=== PATIENT | male | born 1950 | race Caucasian/White ===

== ENCOUNTER 2022-07-08 13:55 | Emergency (ER) | payer MEDICARE, OTHER, SELFPAY ==
--- NOTE | ~2022-07-08 | XR_ITS ---
EXAMINATION: XR FOOT, LEFT CLINICAL INFORMATION: Pain of the second through fourth digits/midfoot. COMPARISON: None TECHNIQUE: AP, lateral, and oblique views of the left foot. FINDINGS: Obliquely oriented fracture of the fifth metatarsal. This involves the shaft without extension to the articular surfaces. Slight medial displacement of the distal fragment by 0.2 cm. Overlying soft tissue swelling. Scattered vascular calcification. XR/XR foot LT min 3V IMPRESSION: Fifth metatarsal shaft fracture.
[2022-07-08 15:00] VITALS: BP 150/75; PULSE 57; RESP 16; TEMP 36.6; O2SAT 98; BMI 23.0
--- NOTE | 2022-07-08 15:00 | ED_ITS ---
HPI - Extremity Injury (Lower) General Chief Complaint: Extremity Injury, Lower <Rossy Siddiqi CNP - Last Filed: 07/08/22 15:02> Stated Complaint: l foot inj <Rossy Siddiqi CNP - Last Filed: 07/08/22 15:02> Time Seen by Provider: 07/08/22 15:26 <Rossy Siddiqi CNP - Last Filed: 07/08/22 15:02> Source: patient and RN notes reviewed <KARINA Li - Last Filed: 07/08/22 16:55> Mode of arrival: ambulatory <KARINA Li Last Filed: 07/08/22 16:55> Limitations: no limitations <KARINA Li Last Filed: 07/08/22 16:55> History of Present Illness HPI Narrative: This is a [id number]-male presenting to the emergency department with complaints of left foot pain x 5 days. Patient states that while he was vacationing in [facility] he was walking and inverted his left ankle and immediately felt pain. He states that he has had pain and bruising in his left foot since the injury. He has been able to weight bear on his left foot, he admits that he does limp secondary to pain. Denies any numbness or tingling. He has a family skiing trip next week and would like to know if he can still go with this injury. <KARINA Li - Last Filed: 07/08/22 16:55> MD complaint: foot injury <KARINA Li Last Filed: 07/08/22 16:55> Onset (ago): day(s) <KARINA Li Last Filed: 07/08/22 16:55> Injury: Left: foot <KARINA Li Last Filed: 07/08/22 16:55> Type of Injury: inversion <KARINA Li Last Filed: 07/08/22 16:55> Place: street/outdoors <KARINA Li Last Filed: 07/08/22 16:55> Severity: moderate <KARINA Li Last Filed: 07/08/22 16:55> Relieving factors: immobilization <KARINA Li - Last Filed: 07/08/22 16:55> Exacerbating factors: weight bearing, movement and palpation <KARINA Li - Last Filed: 07/08/22 16:55> Associated symptoms: ambulatory <KARINA Li - Last Filed: 07/08/22 16:55> Other symptoms: none <KARINA Li - Last Filed: 07/08/22 16:55> Related Data Home Medications: Previous Rx's Medication Instructions Recorded ibuprofen 600 mg tablet 600 mg PO Q8H PRN pain #30 tabs 07/08/22 <Rossy Siddiqi CNP - Last Filed: 07/08/22 15:02> Allergies/Adverse Reactions: Allergies Allergy/AdvReac Type Severity Reaction Status Date / Time Penicillins [PENICILLINS] Allergy Unknown RASH Unverified 01/31/20 14:56 <Rossy Siddiqi CNP - Last Filed: 07/08/22 15:02> Review of Systems Review of Systems: Yes all other systems are reviewed and are negative <KARINA Li - Last Filed: 07/08/22 16:55> [facility] Social History Social History: Social History Advance Directives: Yes Advance Directives Information Provided: No Advance Directives on File: No <Rossy Siddiqi CNP - Last Filed: 07/08/22 15:02> Physical Exam Vital Signs: Vital Signs: Last Vital Signs Temp 97.9 F 07/08/22 15:00 Pulse 57 07/08/22 15:00 Resp 16 07/08/22 15:00 BP 150/75 H 07/08/22 15:00 Pulse Ox 98 07/08/22 15:00 O2 Del Method 07/08/22 15:00 BMI result Body Mass Index 23.0 <Rossy Siddiqi CNP - Last Filed: 07/08/22 15:02> Vital Signs: Last Vital Signs Temp 97.9 F 07/08/22 15:00 Pulse 57 07/08/22 15:00 Resp 16 07/08/22 15:00 BP 150/75 H 07/08/22 15:00 Pulse Ox 98 07/08/22 15:00 O2 Del Method 07/08/22 15:00 BMI result Body Mass Index 23.0 <KARINA Li - Last Filed: 07/08/22 16:55> Appearance: Alert. Oriented X3. No acute distress. HEENT: normal inspection CVS: Normal heart rate and rhythm. Pulses normal. Respiratory: No respiratory distress. Skin: Skin warm and dry. Normal skin color. Normal skin turgor. No rashes. Extremities: Left foot with no obvious deformity. Mild edema overlying the fifth metatarsals with scant healing ecchymosis overlying this region extending into the third and fourth tarsals. No abrasions or open wounds. Good range of motion of all tarsals. Distal sensation and circulation intact. Ambulatory with antalgic gait Neuro: Oriented X 3. No motor deficit. No sensory deficit. <KARINA Li - Last Filed: 07/08/22 16:55> Course Course Course Narrative: This is an RME: Additional HPI, ROS, PE not included below will be deferred to primary provider. Patient is a 72 year old male complaining of left foot pain s/p injury 1 week ago, twisted [place] the beach. 2nd-4th digit swelling, bruising, pain to the distal metatarsals. Plan: XR left foot <Rossy Siddiqi CNP - Last Filed: 07/08/22 15:02> Reevaluation(s) Reevaluation #1: Spoke to orthopedic Sylvie COLLINS who recommends walking boot and to follow up with orthopedics outpatient. Discussed results and treatment plan with patient. Patient refused walking boot. Urged patient to avoid skiing trip next week. Patient understands and agrees with plan. <KARINA Li - Last Filed: 07/08/22 16:55> Time: 16:28 <KARINA Li - Last Filed: 07/08/22 16:55> Medical Decision Making Medical Decision Making MDM Narrative: 72 year old male presenting today with a fifth metatarsal fracture. <KARINA Li - Last Filed: 07/08/22 16:55> Differential Diagnosis Differential Diagnoses: The differential diagnosis associated with the presentation includes <KARINA Alarcon - Last Filed: 07/08/22 16:55> Left foot fracture, sprain, strain, contusion <KARINA Li - Last Filed: 07/08/22 16:55> Independent Interpretation I performed an independent interpretation of an: Plain X-Ray <KARINA Li - Last Filed: 07/08/22 16:55> Interpretation: Left foot x-ray reviewed as left fifth metatarsal fracture, agree with r adiologist reading. <KARINA Li - Last Filed: 07/08/22 16:55> Radiology Impression Discussion of test interpretation with radiology: I have reviewed the radiologist's reading. <KARINA Li - Last Filed: 07/08/22 16:55> Radiologist Impression: XR/XR foot LT min 3V IMPRESSION: Fifth metatarsal shaft fracture. <KARINA Li - Last Filed: 07/08/22 16:55> Discharge Plan Discharge Clinical Impression: Fracture of fifth metatarsal bone of left foot <Rossy Siddiqi CNP - Last Filed: 07/08/22 15:02> Patient Disposition: Home, Self-Care <Rossy Siddiqi CNP - Last Filed: 07/08/22 15:02> Instructions: Foot Fracture in Adults (ED) <Rossy Siddiqi CNP - Last Filed: 07/08/22 15:02> Additional Instructions: Your foot x-ray shows a new fifth metatarsal fracture. Wear the walking post op shoe given to you today for support. Take prescribed ibuprofen as needed for symptoms. Follow up with the orthopedist for further management and treatment of this fracture, call to make an appointment. If you develop new or worsening symptoms call 911 or come back to the ER for further evaluation. <Rossy Siddiqi CNP - Last Filed: 07/08/22 15:02> Prescriptions: New ibuprofen 600 mg tablet 600 mg PO Q8H PRN (Reason: pain) Qty: 30 0RF <oRssy Siddiqi CNP - Last Filed: 07/08/22 15:02> Referrals: [facility] [place]Provider Group] <Rossy Siddiqi CNP - Last Filed: 07/08/22 15:02> Interventions: ED Discharge Assessment Last Done: 07/08/22 16:47 <Rossy Siddiqi CNP - Last Filed: 07/08/22 15:02> Discharge Date/Time: 07/08/22 16:47 <Rossy Siddiqi CNP - Last Filed: 07/08/22 15:02>
--- NOTE | 2022-07-08 15:55 | ED.LOWEXIN ---
HPI - Extremity Injury (Lower) General Chief Complaint: Extremity Injury, Lower Stated Complaint: l foot inj Time Seen by Provider: 07/08/22 15:26 Source: patient and RN notes reviewed Mode of arrival: ambulatory Limitations: no limitations History of Present Illness HPI Narrative: This is a [id number]-male presenting to the emergency department with complaints of left foot pain x 5 days. Patient states that he was Related Data Allergies Allergy/AdvReac Type Severity Reaction Status Date / Time Penicillins [PENICILLINS] Allergy Unknown RASH Unverified 01/31/20 14:56 [facility] Social History Social History Advance Directives: Yes Advance Directives Information Provided: No Advance Directives on File: No Physical Exam Vital Signs: Vital Signs: Last Vital Signs Temp 97.9 F 07/08/22 15:00 Pulse 57 07/08/22 15:00 Resp 16 07/08/22 15:00 BP 150/75 H 07/08/22 15:00 Pulse Ox 98 07/08/22 15:00 O2 Del Method 07/08/22 15:00 BMI result Body Mass Index 23.0
== END 2022-07-08 16:47 | disposition home or self-care (01) ==
PROVIDERS: Emergency Provider Emergency Medicine; PCP Internal Medicine
DX: S92.352A Displaced fracture of fifth metatarsal bone, left foot, initial encounter for closed fracture (principal); X50.1XXA Overexertion from prolonged static or awkward postures, initial encounter; Y93.01 Activity, walking, marching and hiking; Y92.832 Beach as the place of occurrence of the external cause; Y99.8 Other external cause status
CPT/HCPCS: 73630; 99283; 99284

== ENCOUNTER 2024-10-22 11:07 | Outpatient (RCR) | payer MEDICARE, OTHER, SELFPAY | END 2024-10-22 12:17 | disposition home or self-care (01) | LOC: HO.PT 11:07 | PROVIDERS: PCP Internal Medicine; Visit Provider Neurological Surgery | DX: Z98.1 Arthrodesis status (principal) | CPT/HCPCS: 97110; 97112; 97161 ==